=== PATIENT | female | born 1965 | race Caucasian/White ===

== ENCOUNTER 2020-03-22 16:35 | Emergency (ER) | payer BC, SELFPAY ==
--- NOTE | ~2020-03-22 | XR_ITS ---
EXAMINATION: XR abdomen/kub 1V DATE: 03/22/2020 18:14 INDICATION: Right lower quadrant abdominal pain. TECHNIQUE: A supine view of the abdomen on 2 radiographs was obtained. COMPARISON: CT abdomen and pelvis 03/22/2020 FINDINGS: There are no dilated loops of bowel. There is a moderate volume of stool in the colon. IMPRESSION: 1. Normal bowel gas pattern. Reviewed, dictated and finalized at location A.
--- NOTE | ~2020-03-22 | CT_ITS ---
EXAMINATION: CT abdomen pelvis w con DATE: 03/22/2020 18:06 INDICATION: Right lower quadrant abdominal pain. TECHNIQUE: Computed tomography (CT) of the abdomen and pelvis was performed with 100 mL Omnipaque 350 intravenous contrast. Automated exposure control and iterative reconstruction technique were employe d. The dose-length product was 460.61 mGy-cm. COMPARISON: None. FINDINGS: The visualized portions of the lung bases demonstrate minimal atelectasis. There is a 4 mm nodule in left lower lobe, likely benign. No pleural effusion. The heart size is normal. No pericardi al effusion. The liver, gallbladder, spleen, pancreas, adrenal glands, and kidneys are normal. There are no dilated loops of bowel. The appendix is normal. There is a small sliding hiatal hernia. There are no pathologically enlarged lymph nodes. There is no free intraperitoneal fluid. There is lumbar l evoscoliosis and severe spondylosis. IMPRESSION: 1. Small sliding hiatal hernia. Reviewed, dictated and finalized at location A.
[2020-03-22 16:45] VITALS: BP 152/60; PULSE 96; RESP 18; TEMP 36.9; O2SAT 100
--- NOTE | 2020-03-22 17:25 | ED.GENADULT ---
HPI - General Adult General Chief complaint: Unspecified Stated complaint: R flank pain Time Seen by Provider: 03/22/20 17:03 Source: patient Mode of arrival: ambulatory Limitations: no limitations History of Present Illness HPI narrative: 54 yo female who presents for evaluation of right lower abdominal pain, flank pain starting on . Patient states she noticed a small twing of pain on but it resolved. She reports her pain was intermittent until this morning. She has had constant pain located in her right flank, right lower abdomen, groin and she states her pain intermittent radiates to her anterior thigh. She reports her pain will occasionally worsen with movement. She denies associated nausea, vomiting or urinary symptoms. She denies focal weakness or numbness. She took a 1 tramadol 1 hour prior to arrival without relief. Onset (ago): day(s) (3) Related Data Home Medications Medication Instructions Recorded Confirmed escitalopram oxalate 20 mg PO DAILY 10/08/19 10/08/19 lamotrigine 100 mg PO BID 10/08/19 10/08/19 spironolactone 100 mg PO DAILY 03/22/20 Allergies Allergy/AdvReac Type Severity Reaction Status Date / Time meperidine [From Demerol] Allergy Intermediate Rash Verified 03/22/20 16:45 Review of Systems Review of Systems: All systems reviewed & are unremarkable except as noted in HPI and below Constitutional: Constitutional: Denies chills, Denies fever(s) and Denies weakness ENT: Denies dysphagia, Denies dizziness, Denies epistaxis and Denies sore throat Respiratory: Respiratory: Denies cough Gastrointestinal: Gastrointestinal: Reports abdominal pain, Denies diarrhea, Denies nausea and Denies vomiting PMFSH Past Medical History Medical History (Updated 03/22/20 @ 19:00 by Bruna Wright MD) ADD (attention deficit disorder) Anxiety Asthma Scoliosis Surgical History Surgical History (Updated 03/22/20 @ 17:29 by Bruna Wright MD) H/O LEEP Social History Social History Gender identity (if verbalized by the patient): Female Exam Narrative: Exam Narrative: GENERAL: Well-appearing, well-nourished, and in mild acute distress. HEAD: Normocephalic, atraumatic EYES: PERRLA and EOMI, conjunctiva clear without discharge THROAT:Mucous membranes moist, Oropharynx normal without erythema, exudate, peritonsillar swelling or fluctuance NECK: Supple, without lymphadenopathy or mass RESPIRATORY: No respiratory distress, Airway patent, Respirations non-labored, Clear to auscultation without rales, rhonchi or wheeze HEART: Regular rate and rhythm. No murmur heard. Normal peripheral pulses. ABDOMEN: Soft, nontender, nondistended, normal active bowel sounds. No masses. No rebound or guarding, No organomegaly.there is right CVA tenderness EXTREMITIES: No edema, normal strength with full range of motion. SKIN: Warm, dry, normal color without rash NEURO: Alert and oriented x3. CN 2-12 grossly intact. No focal deficits. PSYCH: Normal mood and affect. Course Reevaluation(s) Reevaluation #1: Patient states her pain has completely resolved. I discussed labs and CT results. This pain likely may have been radicular pain. I discussed treatment with pain meds and follow up with PCP Date: 03/22/20 Time: 18:57 Vital Signs Vital signs: Vital Signs Temperature 98.4 F 03/22/20 16:45 Pulse Rate 96 03/22/20 16:45 Respiratory Rate 18 03/22/20 16:45 Blood Pressure 152/60 H 03/22/20 16:45 Pulse Oximetry 100 03/22/20 16:45 Temperature 98.4 F 03/22/20 16:45 Pulse Rate 62 03/22/20 19:26 Respiratory Rate 12 03/22/20 19:26 Blood Pressure 127/70 03/22/20 19:26 Pulse Oximetry 100 03/22/20 19:26 Medical Decision Making Vital Signs Vital Signs: Vital Signs Temperature 98.4 F 03/22/20 16:45 Pulse Rate 96 03/22/20 16:45 Respiratory Rate 18 03/22/20 16:45 Blood Pressure 152/60 H 03/22/20 16:45 Pulse Oximetry 100 03/22/20
[2020-03-22] MEDS: ONDANSETRON INJ 4 MG/2 ML VIAL IV PUSH (17:32)
[2020-03-22] MEDS: HYDROMORPHONE HCL 1 MG/ML INJ IV PUSH (17:34)
[2020-03-22 17:35] LABS: Basophils Absolute Auto 0.1 K/mm3 (0.0-0.1); Basophils Percent Auto 0.8 % (0.2-1.2); Eosinophils Absolute Auto 0.3 K/mm3 (0-0.3); Eosinophils Percent Auto 4.9 % (0-4.4); Hemoglobin 14.3 g/dL (12.0-15.0); Immature Granulocyte Absolute 0.01 K/mm3 (0.00-0.031); Immature Granulocyte Percent A 0.2 % (0-0.5); Lymphocytes Absolute Auto 1.81 K/mm3 (0.9-3.2); Lymphocytes Percent Auto 30.7 % (18.3-44.2); Mean Corpuscular Hemoglobin 30.4 pg (26-34); Mean Corpuscular Volume 89.4 fl (80-100); Mean Platelet Volume 9.2 fl (7.4-10.4); Monocytes Absolute Auto 0.5 K/mm3 (0.1-0.6); Monocytes Percent Auto 7.6 % (2.6-8.5); Neutrophils Absolute Auto 3.3 K/mm3 (1.3-6.7); Neutrophils Percent Auto 55.8 % (45.5-73.1); Platelet Count Result 287 k/mm3 (150-375); Red Cell Distribution Width 12.2 % (11.5-14.5); White Blood Count 5.9 K/mm3 (4.5-10.0)
[2020-03-22 17:37] VITALS: PULSE 84
[2020-03-22 17:37] LABS: Add Urine Microscopic? NO; Appearance Urine Clear (Clear); Bilirubin Urine Negative (Negative); Blood Urine Negative (Negative); Color Urine Straw (Yellow); Glucose Urine UA Negative (Negative); Ketones Urine Negative (Negative); Leukocyte Esterase Ur Negative LEU/UL (Negative); Nitrate Urine Negative (Negative); Protein Urine Negative (Negative); Urobilinogen Urine Negative mg/dL (<2.0)
[2020-03-22 17:38] VITALS: BP 143/75; PULSE 84; RESP 14; O2SAT 100
[2020-03-22 17:45] LABS: Alanine Aminotransferase 17 U/L (4-35); Albumin Level 4.9 g/dL (3.5-5.1); Alkaline Phosphatase 88 U/L (38-126); Aspartate Amino Transferase 28 U/L (14-36); Bilirubin,Total 0.3 mg/dL (0.2-1.3); Blood Urea Nitrogen 22 mg/dL (7-17); Calcium 9.8 mg/dL (8.4-10.2); Carbon Dioxide 25 mmol/L (22-30); Chloride 102 mmol/L (98-107); Estimated CRCL calculation 59 ml/min; Estimated Glomerular Filt Rate 52; Glucose 94 mg/dL (65-105); Potassium 4.2 mmol/L (3.4-5.0); Sodium 138 mmol/L (137-145)
[2020-03-22 18:14] VITALS: BP 123/83; PULSE 78; RESP 16; O2SAT 96
[2020-03-22 18:46] VITALS: BP 107/95; PULSE 66; RESP 16; O2SAT 100
[2020-03-22 19:26] VITALS: BP 127/70; PULSE 62; RESP 12; O2SAT 100
== END 2020-03-22 19:29 | disposition home or self-care (01) ==
PROVIDERS: Emergency Provider General Practice; PCP Family Medicine
DX: R10.9 Unspecified abdominal pain (principal); M79.2 Neuralgia and neuritis, unspecified; F98.8 Other specified behavioral and emotional disorders with onset usually occurring in childhood and adolescence; F41.9 Anxiety disorder, unspecified; J45.909 Unspecified asthma, uncomplicated
CPT/HCPCS: 36415; 74018; 74177; 80053; 81003; 81025; 85025; 96374; 96375; 99284; J1170; J2405; Q9967

== ENCOUNTER 2023-10-10 08:04 | Outpatient (CLI) | payer BC, SELFPAY ==
--- NOTE | ~2023-10-10 | XR_ITS ---
XR knee RT min 4V 10/10/2023 08:28 Indication: Right knee pain Procedure: 4 views right knee Comparison: No prior studies for comparison. Findings: There is severe patellofemoral compartment osteoarthritis. No significant joint effusion. N o fracture or traumatic malalignment. No foreign bodies. Impression: 1: Severe patellofemoral compartment osteoarthritis. Reviewed, dictated and finalized at location B. [employer] Impression: 1: Severe patellofemoral compartment osteoarthritis.
== END 2023-10-10 08:05 | disposition home or self-care (01) ==
PROVIDERS: PCP Family Medicine; Visit Provider Nurse Practitioner Family
DX: M25.561 Pain in right knee (principal); M17.11 Unilateral primary osteoarthritis, right knee
CPT/HCPCS: 73564

== ENCOUNTER 2024-01-02 12:07 | Outpatient (CLI) | payer BC, SELFPAY ==
[2024-01-02 13:22] LABS: Anion Gap 8 mmol/L (8-16); Blood Urea Nitrogen 23 mg/dL (7-17); Calcium 10.5 mg/dL (8.4-10.2); Carbon Dioxide 27 mmol/L (22-30); Chloride 101 mmol/L (98-107); Estimated Glomerular Filt Rate 46; Glucose 100 mg/dL (65-110); Potassium 4.4 mmol/L (3.4-5.0); Sodium 136 mmol/L (137-145)
== END 2024-01-02 12:08 | disposition home or self-care (01) ==
LOC: ANHLAB 12:09
PROVIDERS: PCP Family Medicine; Visit Provider Anesthesiology
DX: Z01.818 Encounter for other preprocedural examination (principal); Z79.899 Other long term (current) drug therapy
CPT/HCPCS: 36415; 80048

== ENCOUNTER 2024-01-06 06:46 | Day surgery (SDC) | payer BC, SELFPAY ==
[2023-12-28 13:56] VITALS: BMI 24.4
--- NOTE | 2023-12-28 14:07 | PC.NURSE ---
Report to the Outpatient Waiting Room, entrance under the green pavilion located off [facility], at time _0600 on date __01/06/24 . Planned Procedure Time: __729 . Time changes happen often and if your time is changed the preop area will call you the afternoon before. - You and your visitor will be asked to self-screen and do not enter if you have any COVID symptoms. - A mask is optional within the hospital at this time. Patients may have clear liquids (water, carbonated beverages, clear teas, apple juice) until 3 hours prior to surgery with a maximum of 20 ounces. - No food from midnight until time of surgery - Infants may have breast milk until 4 hours before surgery, infant formula 6 hours prior to surgery. - Children will be allowed to drink immediately following surgery. If applicable, please bring a bottle or sippy cup to assist with drinking. Juice, water, soda, and popsicles are readily available. For infants on formula, please bring formula the day of surgery. Pacifiers are allowed. Take the following medications with a SIP of water the morning of surgery: _LAMOTRIGINE, ESCITALOPRAM DO NOT STOP ANY OF YOUR OTHER PRESCRIPTION MEDICATIONS PRIOR TO SURGERY ?EXCEPT THE FOLLOWING Medications to discontinue per physician __VITAMINS & SUPPLEMENTS Date to take last dose__3 DAYS PRIOR TO PROCEDURE Please no make-up, nail uruguayan, hairspray, perfume, deodorant, or body powder the day of surgery. No jewelry (including any body piercings) or valuables the day of surgery, leave them at home. Please take a shower or bath the night before, or the morning of, surgery with an antibacterial soap. Wear comfortable, loose fitting clothing. Children are encouraged to wear pajamas. - Jewelry must be removed prior to entering the operating room. Rings and piercings that are not removed may be cut off. - The hospital will not accept responsibility for valuables. - Please leave all valuables, including medications, at home the day of surgery. If you are going home after surgery, a licensed frontload driver must drive you home. - NO public transportation without another adult if you receive anesthesia. - We recommend that an adult stay with you for 24 hours following discharge. - We also recommend that you do not drive, make important decision, drink alcoholic beverages, or take any drugs that were not prescribed by your health care provider for at least 24 hours after your discharge time. For Pediatric surgeries, we recommend two adults accompany the child home. Follow any additional instructions given to you from your surgeon. If you or anyone in your household have experienced Covid symptoms in the past week, please notify your surgeon or the nurse liaison at the phone number below for possible testing. Telephone instructions given to _ELVIA ARGUETA and asked if any additional questions and then verbalized understanding. Patient advised to call surgeon office or pre surgery nurse liaison [phone] if any additional questions.
--- NOTE | 2024-01-05 13:09 | WPDANESEPPF ---
Anes - Initial Pre Proc Eval Procedure: Operation Date: 01/06/24 07:30 Proposed Procedures p Lapidus Bunionectomy Left Foot, Pablo Phalangeal Osteotomy Left Hallux - Juan Nguyen JR, MD Date/Time: 01/05/24 13:09 Surgeon: Juan Nguyen JR, MD Pre Op Diagnosis: bunion left foot Patient Data Age: 58 Gender: F Height: 1.8 m Weight: 79.38 kg Last Vital Signs O2 Del Method Room Air 12/28/23 14:01 Allergies Allergy/AdvReac Type Severity Reaction Status Date / Time meperidine [From Demerol] Allergy Intermediate Rash Verified 12/28/23 13:49 Home Medications Medication Instructions Recorded Confirmed Type escitalopram oxalate 20 mg tablet 20 mg PO DAILY 10/08/19 12/28/23 History lamotrigine 100 mg tablet 100 mg PO BID 10/08/19 12/28/23 History spironolactone 100 mg tablet 50 mg PO DAILY 10/10/23 12/28/23 History Adults Multivitamin 1 tablet PO DAILY 12/28/23 12/28/23 History calcium phosphate,dibasic 77 1 tablet PO DAILY 12/28/23 12/28/23 History mg-vitamin D3 400 unit tablet Patient hx anesthesia problems: none Family hx anesthesia problems: none Results Review: All pre-operative results and documents have been reviewed as part of the pre-operative evaluation. [facility] Past Medical History Medical History (Updated 01/05/24 @ 13:09 by Chris Solorio DO) ADD (attention deficit disorder) Anxiety Asthma Bipolar disorder BMI 23.0-23.9, adult Scoliosis Surgical History Surgical History H/O LEEP Family History Family History Father Heart disease Mother No problems noted. Sibling No problems noted. 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 Informed Consent: The patient's anesthetic plan and its attendant risks and benefits were discussed with the patient/family/POA. Questions were solicited and answers provided to the satisfaction of the patient/family/POA.
[2024-01-06] VITALS (8 sets, daily range): BP systolic 112–132; BP diastolic 56–79; PULSE 67–86; RESP 12–20; TEMP 36.2–37.2; O2SAT 96–100
--- NOTE | ~2024-01-06 | XR_ITS ---
EXAMINATION: XR surgery orthopedic DATE: 01/06/2024 09:06 INDICATION: Left foot surgery TECHNIQUE: 2 fluoroscopic images of the left forefoot were obtained during procedure performed by Dr. Nguyen. Radiologist was not present for the imaging or procedure. The amount of fluoroscopy time u sed during this procedure was 0.4 minutes. COMPARISON: None. FINDINGS: Osteotomy with medial sided staple fixation at the mid diaphysis of the left first proximal phalanx. Instrumented first tarsal metatarsal arthrodesis with plate and screw fixation. There is an additiona l cannulated lag screw fixation extending between the base of the first and second metatarsals. IMPRESSION: 1. Fluoroscopy utilized orthopedic procedures the left forefoot with instrumentation as detailed abov e. See procedure note for further detail. Reviewed, dictated and finalized at location A. 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 Fluoroscopy utilized orthopedic procedures the left forefoot with instrument ation as detailed above. See procedure note for further detail.
--- NOTE | 2024-01-06 06:49 | WPDANESPNB ---
Anes - Peripheral Nerve Block Date/Time: 01/06/24 06:49 I have discussed with the patient/family/POA the placement of a peripheral nerve block for post-operative pain management, including associated risks, benefits, complications, and side effects. Alternative methods of post-operative analgesia were detailed. Questions were solicited and answers provided to the satisfaction of the patient/family/POA. Time-Out: A pre-procedural Time-Out was completed immediately before starting the procedure and confirmed: Patient Identification, Site, Procedure, Patient Position and the Availability of Requisite Equipment. Clinical Indications: Acute post-operative pain management requested by the operative surgeon. Nerve Block Insertion Note Anes-nerve block: posterior fossa sciatic left and adductor canal left Patient position: supine (for adductor canal) and other (right lateral for popliteal) Skin prep: chlorhexidine Needle: 22 gauge, stimulating, insulated echogenic needle. Needle length: 80 mm Technique: nerve stimulation lost at (mA) (for popliteal lost at 0.2) and ultrasound Injectate: bupivacaine 0.5% with epi 5 mcg/ml (20 mL for popliteal, 10 mL for adductor canal (no epi)) Observations: tolerated well Complications: none Procedure start time:: 715 Procedure end time:: 720
[2024-01-06] MEDS: LACTATED RINGERS 1,000 ML 30 ML IV CONT ×2 (07:00→09:22)
--- NOTE | 2024-01-06 07:10 | WPDHPUPDATE1 ---
History and Physical Update Update Date/Time: 01/06/24 07:10 History and Physical has been reviewed, including an updated exam of the patient. There are NO changes in the patient's condition. Risks, benefits, and alternatives have been discussed and questions answered. Patient agrees to proceed with procedure.
[2024-01-06] MEDS: ceFAZolin 2 GM/D5W 50 ML 2 GM/50 ML BAG IVPB (07:29)
--- NOTE | 2024-01-06 09:31 | W.PM.PROC2 ---
Procedure Note - Detailed Date of Procedure 01/06/24 Pre-op Diagnosis bunion left foot Post-op Diagnosis Same Procedure Performed 1. Lapidus bunionectomy left foot 2. Pablo Phalangeal osteotomy left hallux Surgeon Juan Nguyen JR, DPM Anesthesia General and Regional Indications Painful left forefoot Description of Procedure Under mild sedation, the patient was brought to the operating room, placed on the operating table in the supine position.? A pneumatic ankle tourniquet was placed about the patient's left ankle. Following general anesthesia and a previous popliteal fossa block, the foot was then scrubbed, prepped, and draped in the usual aseptic manner.? An Esmarch bandage was then used to examine the patient's foot and pneumatic ankle tourniquet was then inflated. ? Surgery began in the following manner.? Attention was directed to the dorsal aspect of the 1st metatarsocuneiform of the foot where fluoroscopy was used to identify the joint. ? A 3 cm incision was made overlying the dorsal aspect of the 1st metatarsocuneiform joint of the foot just medial to the extensor hallucis longus tendon.? The incision was then continued deep down through the subcutaneous tissues using sharp and blunt dissection.? All bleeders were ligated and cauterized as necessary.? At this point, the extensor tendon was identified and reflected laterally.? Next, the periosteum and capsular incision was made at the full length of the skin incision exposing the medial cuneiform as well as the base of the 1st metatarsal.? Next, a sagittal bone saw was introduced from dorsal to plantar across the 1st metatarsocuneiform joint in order to free up any ankylosed portions of the joint and also to release any adhesions. Two Steinmann Pins were driven from dorsal to plantar 1cm proximal and distal to the 1st metatarsal cuneiform joint. Next, a sharp curved osteotome and curette was used to resect the cartilage and subchondral bone and a 2.0mm drill bit was used to fenestrate the joint to promote fusion. ? At this point, a small 1 cm incision was made along the medial aspect of the 1st intermetatarsal space just medial to the second metatarsal head. Next, a lateral release consisting of a lateral capsule incision as well as release of the adductor hallucis tendon with the tenotomy as well as releasing the distal aspect and lateral aspect and proximal aspect of the fibular sesamoid.? After this, a lateral release was performed.? The hallux lateral deviation was noted to be reduced as far as the track-bound hallux. Next a 3cm incision was made medial to the first metatarsal head extending proximal to the proximal phalanx.? A 0.062 K wire was driven from dorsal medial to plantar lateral across the 1st metatarsal head and a second 0.062 K wire driven from the dorsal aspect of the second metatarsal head. Next the Arthrex Lapidus clamp was used to obtain 3 plane correction of the hallux abductovalgus deformity. Fluoroscopy was used to make sure that the 1st MPJ was congruous and the sesamoid apparatus was centered under the first metatarsal and also to make certain that there was no elavatus of the first ray. ? Next, an Arthrex QuickFix 4.0 mm cannulated screw was driven from the medial base of the 1st metatarsal to the intermediate cuneiform under fluoroscopic guidance Excellent compression was noted across the joint. Moreover, the Arthrex dorsal Lapidus Linear plate was placed along the dorsal medial aspect of the 1st metatarsal cuneiform joint and the two 3.5mm proximal locking screws were drilled from dorsal to plantar. Next the one eccentrically drilled non locking screws was used to further compress the joint to ensure arthrodesis. Finally the most distal 3.5mm locking screw was drilled from dorsal to plantar across the plate into the metatarsal shaft. At this point the positioner was removed and fluoroscopy was used to make sure that the deformity correction was maintained.
[2024-01-06] MEDS: fentaNYL CITRATE INJ (*CRX) 100 MCG/2 ML VIAL 25 MCG IV PUSH ×2 (09:32→09:34)
== END 2024-01-06 11:18 | disposition home or self-care (01) ==
PROVIDERS: PCP Family Medicine; Visit Provider Podiatrist Foot & Ankle Surgery
PROC: (CPT 28299; principal; 2024-01-06 07:30)
DX: M21.612 Bunion of left foot (principal); G89.18 Other acute postprocedural pain; F31.9 Bipolar disorder, unspecified; F41.9 Anxiety disorder, unspecified; F98.8 Other specified behavioral and emotional disorders with onset usually occurring in childhood and adolescence
CPT/HCPCS: 28298; 64447; 64445; 99199; C1713; C1769; J0690; J2250; J2405; J2704; J3010; J7120

== ENCOUNTER 2024-02-23 09:38 | Outpatient (CLI) | payer BC, SELFPAY ==
--- NOTE | ~2024-02-23 | MM_ITS ---
EXAMINATION: MM screening sasha BI w teddy HISTORY: Screening TECHNIQUE: Craniocaudal and mediolateral oblique 3-D tomosynthesis images were obtained and synthetic 2-D images were generated. CAD analysis was submitted and interpreted. COMPARISON: Comparison to multiple prior studies sequentially, with oldest reviewed study dated 09/22. BREAST PARENCHYMAL COMPOSITION: Not dense: There are scattered areas of fibroglandular density. FINDINGS: There is no evidence of suspicious mass, calcification, or architectural distortion to sugg est malignancy in either breast. There has been no suspicious interval change. IMPRESSION: 1. No mammographic evidence of malignancy. 2. Recommend routine screening mammography in one year. BI-RADS Category 1: Negative Reviewed, dictated and finalized at location A.
== END 2024-02-23 09:39 | disposition home or self-care (01) ==
PROVIDERS: PCP Family Medicine; Visit Provider Nurse Practitioner Family
DX: Z12.31 Encounter for screening mammogram for malignant neoplasm of breast (principal)
CPT/HCPCS: 77063; 77067

== ENCOUNTER 2024-04-13 10:37 | Outpatient (CLI) | payer BC, SELFPAY ==
--- NOTE | ~2024-04-13 | DEXA_ITS ---
Bone Density Report Name: DUNIA ARGUETA Age: 58 Sex: Female Ethnicity: White Date of : 1965 Indication: postmenopausal; screening for osteoporosis; height loss; Referring Provider: JUANY DINH Study: Bone densitometry was performed. Exam Date: April 13, 2024 Accession number: [id number] Bone Density: Region BMD T-score Z-score Classification AP Spine(L1-L4) 1.200 1.4 2.6 Normal Femoral Neck (Left) 0.708 -1.3 -0.1 Osteopenia Total Hip (Left) 1.005 0.5 1.3 Normal Femoral Neck (Right) 0.732 -1.1 0.1 Osteopenia Total Hip (Right) 0.986 0.4 1.1 Normal Total Hip Mean 0.995 0.5 1.2 Normal World Health Organization criteria for BMD impression classify patients as: Normal (T-score at or above -1.0), Osteopenia (T-score between -1.0 and -2.5), or Osteoporosis (T-score at or below -2.5). 10-year Fracture Risk(1): Major Osteoporotic Fracture 6.7% Hip Fracture 0.4% Reported Risk Factors: [place] (), Neck BMD=0.708, BMI=25.3 (1) FRAX(R) Version 3.08. Fracture probability calculated for an untreated patient. Fracture probability may be lower if the patient has received treatment. Previous Exams: Region Exam Age BMD T-score BMD Change BMD Change Date g/cm2 vs Baseline vs Previous Total Hip(Left) 04/13/2024 58 1.005 0.5 -0.002 (-0.2%) -0.002 (-0.2%) 10/11/2019 54 1.007 0.5 Total Hip(Right) 04/13/2024 58 0.986 0.4 0.006 (0.6%) 0.006 (0.6%) 10/11/2019 54 0.980 0.3 *Denotes significance at 95% confidence level, LSC for Total Hip = 0.027 g/cm2 Clinical Information Provided by Patient: Has used the following medications: Vitamin D, Calcium Patient maximum height was 71.0 Menopause Age: 52 Drinks caffeinated beverages Onset of menses at age 17 Number of children 1 Impression: The patient has low bone mass, based on the Left Femoral Neck T-score. The patient has an estimated ten-year risk of hip fracture of 0.4% and an estimated ten-year risk of major fracture of 6.7%, based on the WHO FRAX algorithm. No significant bone loss was observed. Discussion: BONE DENSITY IS LOW AT ONE OR MORE SKELETAL SITES. This patient's lowest T-score is low at one or more skeletal sites. It meets the World Health Organization's (WHO) criteria for ?low bone mass? (T-score between -1.0 and -2.5). The patient's 10-year risk of fracture as calculated by FRAX is less than the threshold where pharmacological therapy is recommended by the Nationa
== END 2024-04-13 10:38 | disposition home or self-care (01) ==
LOC: ANHIMG 10:39
PROVIDERS: PCP Family Medicine; Visit Provider Nurse Practitioner Family
DX: M85.89 Other specified disorders of bone density and structure, multiple sites (principal); Z78.0 Asymptomatic menopausal state; Z13.820 Encounter for screening for osteoporosis
CPT/HCPCS: 77080

== ENCOUNTER 2024-09-20 16:03 | Emergency (ER) | payer BC, OTHER, SELFPAY ==
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
[2024-09-20 16:40] VITALS: BP 114/74; PULSE 79; RESP 16; TEMP 36.5; O2SAT 99
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
[2024-09-21 00:37] VITALS: BP 122/66; PULSE 72; RESP 17; TEMP 36.6; O2SAT 100
[2024-09-21 01:32] LABS: Estimated CRCL calculation 50 ml/min; Estimated Glomerular Filt Rate 46
[2024-09-21 02:32] VITALS: BP 124/70; PULSE 83; RESP 16; O2SAT 100
[2024-09-21 06:03] VITALS: BP 114/76; PULSE 86; RESP 16; O2SAT 100
== END 2024-09-21 06:04 | disposition home or self-care (01) ==
PROVIDERS: Emergency Provider Physician Assistant; PCP Family Medicine
DX: S20.219A Contusion of unspecified front wall of thorax, initial encounter (principal); S22.22XA Fracture of body of sternum, initial encounter for closed fracture; R91.1 Solitary pulmonary nodule; V89.2XXA Person injured in unspecified motor-vehicle accident, traffic, initial encounter; W22.10XA Striking against or struck by unspecified automobile airbag, initial encounter; J45.909 Unspecified asthma, uncomplicated; F31.9 Bipolar disorder, unspecified; F41.9 Anxiety disorder, unspecified
CPT/HCPCS: 70450; 71260; 74177; 99284; Q9967

== ENCOUNTER 2025-01-20 20:12 | Emergency (ER) | payer BC, SELFPAY ==
[2025-01-20 20:16] VITALS: BP 117/68; PULSE 105; RESP 16; TEMP 36.7; O2SAT 100
--- NOTE | 2025-01-20 21:43 | ED.LOWEXIN ---
HPI - Extremity Injury (Lower) General Chief Complaint: Extremity Injury, Lower Stated Complaint: R ankle injury Time Seen by Provider: 01/20/25 21:13 Source: patient Mode of arrival: wheelchair Limitations: no limitations History of Present Illness HPI Narrative: This is a 59-year-old female that presents to the emergency department for right ankle pain. Reports she rolled her right ankle. Reports swelling and pain to the area. Denies decreased range of motion or numbness. Related Data Home Medications ?Medication ?Instructions ?Recorded ?Confirmed ?Last Taken ?Type escitalopram oxalate 20 mg tablet 20 mg PO DAILY 10/08/19 04/05/24 01/05/24 History lamotrigine 100 mg tablet 100 mg PO BID 10/08/19 04/05/24 01/05/24 History spironolactone 100 mg tablet 50 mg PO DAILY 10/10/23 04/05/24 01/02/24 History Adults Multivitamin 1 tablet PO DAILY 12/28/23 04/05/24 01/02/24 History calcium phosphate,dibasic 77 1 tablet PO DAILY 12/28/23 04/05/24 01/02/24 History mg-vitamin D3 400 unit tablet Allergies Allergy/AdvReac Type Severity Reaction Status Date / Time meperidine (From Demerol) Allergy Intermediate Rash Verified 01/20/25 20:13 Review of Systems Review of Systems: CONSTITUTIONAL: Denies fever MUSCULOSKELETAL: Reports joint pain, and myalgia. NEUROLOGIC: Denies numbness, or weakness. All systems reviewed & are unremarkable except as noted in HPI and below PMFSH Past Medical History Medical History ADD (attention deficit disorder) Anxiety Asthma Bipolar disorder BMI 23.0-23.9, adult Scoliosis Surgical History Surgical History H/O LEEP Family History Family History Father Heart disease Mother No problems noted. Sibling No problems noted. 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 HEAD: Normocephalic, atraumatic. EYES: EOMI. EXTREMITIES: Normal range of motion. Edema about the right ankle laterally. Normal DP pulse. Normal sensation SKIN: Warm, dry, no rash. NEURO: No focal deficits. Alert and oriented x3. PSYCH: Normal mood and affect Course Course Emergency Course: patient updated on her workup and agrees with plan of care Vital Signs Vital signs: Vital Signs Temperature 98.1 F 01/20/25 20:16 Pulse Rate 105 H 01/20/25 20:16 Respiratory Rate 16 01/20/25 20:16 Blood Pressure 117/68 01/20/25 20:16 Pulse Oximetry 100 01/20/25 20:16 Temperature 98.1 F 01/20/25 20:16 Pulse Rate 105 H 01/20/25 20:16 Respiratory Rate 16 01/20/25 20:16 Blood Pressure 117/68 01/20/25 20:16 Pulse Oximetry 100 01/20/25 20:16 Procedures Orthopedic Splinting/Casting Injury #1: Splinting/Casting Date: 01/20/25 Splinting/Casting Time: 21:48 Side: right Lower Extremity Injury Location: ankle Lower Extremity Immobilizer: Blayne wrap Pre-Procedure Neuro Vascular Exam: normal Post-Procedure Neuro Vascular Exam: normal Other Orthopedic Equipment: crutches MDM - Extremity Injury (Lower) MDM Narrative Medical decision making narrative: Patient presents emergency department for right ankle pain after an injury today. She is neurovascularly intact. Right ankle x-ray without acute osseous abnormalities. She was placed in Blayne wrap and given crutches. She is to follow up with primary provider. She was given warnings to return to the ER Differential Diagnosis Differential diagnosis: Likely ankle sprain and strain and ankle fracture Imaging Data Radiologist's impression: ITS Impressions Ankle X-Ray 01/20/25 20:41 IMPRESSION: No acute osseous abnormality of the right ankle. Critical Care Time Critical Care Time Critical Care Time: No Discharge Plan Discharge Clinical Impression: Ankle sprain Qualifiers: Encounter type: initial encounter Involved ligament of ankle: unspecified ligament Laterality: right Qualified Code(s): S93.401A - Sprain of unspecified ligament of right ankle, initial encounter Patient Disposition: Home, Self-Care Condition: Stable Instructions: Ankle Sprain (ED) Additional Instructions: Return to the ER if you experience fever, redness and swelling of your extremity, numbness or any other symptoms that are concerning to you Wear BLAYNE wrap and use crutches. No weight on the affected leg until able to bear weight without pain. Ice and elevate extremity. Pain medication as needed and directed. Follow up with your doctor for further care. Patient Language: [place] Prescriptions: No Action spironolactone 100 mg tablet 50 mg PO DAILY Patient Comments: FOR HAIR LOSS lamotrigine 100 mg Tablet 100 mg PO BID escitalopram oxalate 20 mg Tablet 20 mg PO DAILY Adults Multivitamin 1 tablet PO DAILY calcium phos,dibas-vitamin D3 77-400 mg-unit Tablet 1 tablet PO DAILY lidocaine 5 % adhesive patch,medicated 1 patch topical DAILY Qty: 15 0RF Rx Instructions: leave on most painful area for up to 12 hrs Follow-up/Referrals: Santiago Moore MD [Primary Care Provider] -
== END 2025-01-20 22:06 | disposition home or self-care (01) ==
PROVIDERS: Emergency Provider Physician Assistant; PCP Family Medicine
DX: S93.401A Sprain of unspecified ligament of right ankle, initial encounter (principal); J45.909 Unspecified asthma, uncomplicated; F31.9 Bipolar disorder, unspecified; F41.9 Anxiety disorder, unspecified; F98.8 Other specified behavioral and emotional disorders with onset usually occurring in childhood and adolescence; Z79.899 Other long term (current) drug therapy; X50.9XXA Other and unspecified overexertion or strenuous movements or postures, initial encounter
CPT/HCPCS: 73610; 99283